=== PATIENT | female | born 1955 | race Caucasian/White ===

== ENCOUNTER → 2020-04-22 | Outpatient (CLI) | payer OTHER ==
[~2020-04-22] MED LIST: REGADENOSON 0.4 MG/5 ML PF SYG IVP SCH
== END | disposition home or self-care (01) ==
LOC: SHCH 08:09
PROVIDERS: ATTEND Internal Medicine Cardiovascular Disease
DX: I35.0 Nonrheumatic aortic (valve) stenosis (principal); J44.9 Chronic obstructive pulmonary disease, unspecified
CPT/HCPCS: 78452; 93017; 96374; A9500 ×2; J2785

== ENCOUNTER 2020-10-21 05:50 | Observation (INO) | payer MEDICARE ==
[2020-10-17 09:02] VITALS: BP 151/77
[2020-10-17 11:37] LABS: BASOPHILS % (AUTO) 0.6 % (0.0-5.0); HEMATOCRIT 43.8 % (36-48); LYMPHOCYTES % (AUTO) 30.9 % (21.0-51.0); MEAN CORPUSCULAR HEMOGLOBIN 28.4 pg (27.0-33.0); MEAN CORPUSCULAR HGB CONC 31.7 g/dL (32.0-36.0); MEAN CORPUSCULAR VOLUME 89.6 fL (79-99); MONOCYTES % (AUTO) 8.5 % (3.0-13.0); NEUTROPHILS % (AUTO) 53.6 % (40.0-77.0); PLATELET COUNT (AUTO) 170 K/uL (130-400); RED BLOOD CELL COUNT(AUTO) 4.89 MIL/uL (4.00-5.50); RED CELL DISTRIBUTION WIDTH 13.1 % (11.0-15.5); WHITE BLOOD COUNT (AUTO) 4.8 K/uL (4.8-10.8)
[2020-10-17 11:42] LABS: APPEARANCE,URINE Clear (CLEAR); BILIRUBIN,URINE Negative (NEGATIVE); COLOR,URINE Yellow (YELLOW); GLUCOSE, URINE (UA) Negative (NEGATIVE); KETONES,URINE Negative (NEGATIVE); LEUKOCYTE ESTERASE ,URINE Trace (NEGATIVE); NITRATE,URINE Negative (NEGATIVE); OCCULT BLOOD,URINE Negative (NEGATIVE); PH,URINE 5.5 (5.0-8.0); PROTEIN,URINE Negative (NEGATIVE)
[2020-10-17 11:47] LABS: POTASSIUM 5.4 mmol/L (3.5-5.1)
[2020-10-17 12:28] LABS: INR 0.96 (0.85-1.15); PROTHROMBIN TIME 10.5 SEC (9.6-11.6)
[2020-10-17 12:30] LABS: PARTIAL THROMBOPLASTIN TIME 25.5 SEC (26.3-35.5)
[2020-10-17 12:34] LABS: BACTERIA,URINE Few /HPF (None Seen); WBC,URINE 0-1 /HPF (0-1)
[2020-10-17 12:35] LABS: RBC,URINE None Seen /HPF (0-1)
[2020-10-21] VITALS (24 sets, daily range): BP systolic 113–148; BP diastolic 51–84
[~2020-10-21] VITALS: Ht 165.1 cm; Wt 72.6 kg
[~2020-10-21 05:50] MED LIST changes: +AEC81 PO; +ALBU90AE IH; +AMLO-258 PO; +ATOR40TA69 PO; +LISI40TA9 PO; +METO25TA6 PO; -REGADENOSON 0.4 MG/5 ML PF SYG IVP SCH
[2020-10-21] MEDS ORDERED: 0.9%NACL 1000ML 1,000 ML IV ONE (06:21)
[2020-10-21] MEDS ORDERED: IOHEXOL 350 MG/ML 100ML INFUS..BTL IV ONE (07:13)
[2020-10-21] MEDS ORDERED: LIDOCAINE HCL 400MG/20ML VIAL ONE (07:13)
[2020-10-21] MEDS ORDERED: HEPARIN 10,000 UNIT/10ML (1,000 UNIT/ML) VIAL ONE (07:13)
[2020-10-21] MEDS ORDERED: HEPARIN 1,000 UNIT VIAL ONE (07:30)
[2020-10-21] MEDS ORDERED: IOHEXOL-350 75 ML VIAL IV ONE (07:58)
[2020-10-21] MEDS ORDERED: 0.9%NACL 1000ML 1,000 ML IV SCH (08:00)
[2020-10-21] MEDS: 0.9%NACL 10ML VIAL IVP SCH ×2 (08:45→16:45)
[2020-10-21] MEDS ORDERED: ALBUTEROL INHALER 90MCG/INH IH PRN (18:45)
[2020-10-21] MEDS ORDERED: ATORVASTATIN 40 MG TABLET PO SCH (21:00)
[2020-10-22 03:32] VITALS: BP 129/63
[2020-10-22 07:53] VITALS: BP 136/78
[2020-10-22] MEDS ORDERED: METOPROLOL TARTRATE 25 MG TAB PO SCH (09:00)
[2020-10-22] MEDS ORDERED: ASPIRIN 81MG CHEW TAB PO SCH (09:00)
[2020-10-22] MEDS ORDERED: AMLODIPINE 5 MG TAB PO SCH (09:00)
[2020-10-22] MEDS ORDERED: LISINOPRIL 40 MG TABLET PO SCH (09:00)
[2020-10-22] MEDS: 0.9%NACL 10ML VIAL IVP SCH (09:09)
[2020-12-17] MEDS ORDERED: METO25TA6 PO (15:21)
[2020-12-17] MEDS ORDERED: PANT40TA55 PO (15:21)
[2020-12-24] MEDS ORDERED: FURO20TA6 PO (12:48)
[2020-12-24] MEDS ORDERED: AMIO200T44 PO (12:48)
[2020-12-24] MEDS ORDERED: LOSA25TA2 PO (12:48)
[2020-12-24] MEDS ORDERED: ATOR40TA69 PO (12:48)
[2020-12-24] MEDS ORDERED: METO25 PO (12:48)
== END 2020-10-22 10:14 | disposition home or self-care (01) ==
LOC: DAH 05:50 → DAHIP 05:51 → INTOOBSV 05:51 → EDSTATUS 09:00 → 2DH 18:17 → 4CH 21:09
PROVIDERS: ADMIT Internal Medicine Cardiovascular Disease; ATTEND Internal Medicine Cardiovascular Disease
DX: I25.119 Atherosclerotic heart disease of native coronary artery with unspecified angina pectoris (principal); I35.2 Nonrheumatic aortic (valve) stenosis with insufficiency; S30.1XXA Contusion of abdominal wall, initial encounter; I10 Essential (primary) hypertension; J44.1 Chronic obstructive pulmonary disease with (acute) exacerbation; Z95.2 Presence of prosthetic heart valve; X58.XXXA Exposure to other specified factors, initial encounter; Y92.89 Other specified places as the place of occurrence of the external cause; Y93.89 Activity, other specified; Y99.8 Other external cause status
CPT/HCPCS: 36415 ×2; 71045; 80048; 81001; 82948; 84132; 85025; 85610; 85730; 93005; 93460; A4215; A4216; A4221; A4222; A4223 ×3; A4335; A4554; A4606; A4663; C1894 ×2; G0378 ×25; J1644 ×2; J3490; J7030; Q9965 ×2; Q9967 ×2

== ENCOUNTER 2021-04-28 11:47 | Emergency (ER) | payer MEDICARE ==
[~2021-04-28] VITALS: Ht 165.1 cm; Wt 76.7 kg
[~2021-04-28 11:47] MED LIST changes: +AMIO200T44 PO; -AMLO-258 PO; +FURO20TA6 PO; -LISI40TA9 PO; +LOSA25TA2 PO; +METO25 PO; -METO25TA6 PO; +PANT40TA55 PO
[2021-04-28 12:21] LABS: BASOPHILS % (AUTO) 0.6 % (0.0-5.0); EOSINOPHILS % (AUTO) 4.1 % (0.0-8.0); HEMATOCRIT 41.8 % (36-48); LYMPHOCYTES % (AUTO) 19.8 % (21.0-51.0); MEAN CORPUSCULAR HEMOGLOBIN 27.8 pg (27.0-33.0); MEAN CORPUSCULAR HGB CONC 31.8 g/dL (32.0-36.0); MEAN CORPUSCULAR VOLUME 87.3 fL (79-99); MONOCYTES % (AUTO) 8.2 % (3.0-13.0); PLATELET COUNT (AUTO) 195 K/uL (130-400); RED BLOOD CELL COUNT(AUTO) 4.79 MIL/uL (4.00-5.50); WHITE BLOOD COUNT (AUTO) 6.6 K/uL (4.8-10.8)
[2021-04-28 12:47] LABS: CREATININE 1.1 mg/dL (0.5-1.5); POTASSIUM 3.9 mmol/L (3.5-5.1)
[2021-04-28 12:49] LABS: INR 0.97 (0.85-1.15); PROTHROMBIN TIME 10.6 SEC (9.6-11.6)
[2021-04-28 12:50] LABS: PARTIAL THROMBOPLASTIN TIME 26.9 SEC (26.3-35.5)
[2021-04-28 12:58] LABS: BILIRUBIN,TOTAL 0.2 mg/dL (0.2-1.0); TOTAL PROTEIN, SERUM 7.3 g/dL (6.0-8.3)
[2021-04-28 13:48] LABS: APPEARANCE,URINE Clear (CLEAR); BILIRUBIN,URINE Negative (NEGATIVE); COLOR,URINE Yellow (YELLOW); GLUCOSE, URINE (UA) Negative (NEGATIVE); KETONES,URINE Negative (NEGATIVE); LEUKOCYTE ESTERASE ,URINE Negative (NEGATIVE); NITRATE,URINE Negative (NEGATIVE); OCCULT BLOOD,URINE Negative (NEGATIVE); PROTEIN,URINE Negative (NEGATIVE); UROBILINOGEN,URINE 0.2 mg/dL (0.2-1.0)
[2021-04-28 14:20] LABS: B-TYPE NATRIURETIC PEPTIDE 204 pg/mL (0-100)
[2021-04-28] MEDS ORDERED: AMLODIPINE 5 MG TAB PO ONE (14:30)
[2021-04-28] MEDS ORDERED: LABETALOL 20MG VIAL IV ONE (14:30)
[2021-04-28] MEDS ORDERED: AMLO-258 PO (16:13)
[2021-04-28 16:21] VITALS: BP 143/82
== END 2021-04-28 16:43 | disposition home or self-care (01) ==
LOC: EDH 11:47
DX: I10 Essential (primary) hypertension (principal); E78.5 Hyperlipidemia, unspecified; I25.10 Atherosclerotic heart disease of native coronary artery without angina pectoris; Z79.82 Long term (current) use of aspirin; Z79.899 Other long term (current) drug therapy; Z95.1 Presence of aortocoronary bypass graft
CPT/HCPCS: 36415; 71045; 80053; 81003; 82550; 83880; 84484; 85025; 85610; 85730; 93005; 96374; 99285; J3490

== ENCOUNTER → 2021-07-09 | Outpatient (CLI) | payer MEDICARE ==
[~2021-07-09] MED LIST changes: +AMLO-258 PO
== END | disposition home or self-care (01) ==
LOC: SLP 20:15
PROVIDERS: ATTEND Internal Medicine Cardiovascular Disease
DX: G47.33 Obstructive sleep apnea (adult) (pediatric) (principal)
CPT/HCPCS: 95811

== ENCOUNTER → 2022-11-29 | Outpatient (CLI) | payer MEDICARE ==
[2022-11-29 12:27] LABS: ALBUMIN 3.8 g/dL (3.5-5.0); CREATININE 0.9 mg/dL (0.5-1.5); TOTAL PROTEIN, SERUM 7.3 g/dL (6.0-8.3)
== END | disposition home or self-care (01) ==
LOC: LAB 09:11
PROVIDERS: ATTEND Internal Medicine Cardiovascular Disease
DX: I48.0 Paroxysmal atrial fibrillation (principal); I25.10 Atherosclerotic heart disease of native coronary artery without angina pectoris; I50.33 Acute on chronic diastolic (congestive) heart failure
CPT/HCPCS: 36415; 80053; 80061

== ENCOUNTER → 2023-02-28 | Outpatient (CLI) | payer MEDICARE ==
[~2023-02-28] MED LIST changes: +LOSA-417 PO; -LOSA25TA2 PO
== END | disposition home or self-care (01) ==
LOC: SHCH 12:50
PROVIDERS: ATTEND Internal Medicine Cardiovascular Disease
DX: I35.2 Nonrheumatic aortic (valve) stenosis with insufficiency (principal); I51.7 Cardiomegaly; Z95.3 Presence of xenogenic heart valve
CPT/HCPCS: 93306

== ENCOUNTER → 2023-11-30 | Outpatient (CLI) | payer MEDICARE ==
[2023-11-30 16:48] LABS: ALBUMIN 4.2 g/dL (3.5-5.0); BILIRUBIN,TOTAL 0.5 mg/dL (0.2-1.0); CREATININE 1.2 mg/dL (0.5-1.0); POTASSIUM 4.6 mmol/L (3.5-5.1); TOTAL PROTEIN, SERUM 7.8 g/dL (6.0-8.3)
== END | disposition home or self-care (01) ==
LOC: LAB 11:50
PROVIDERS: ATTEND Physician Assistant
DX: I35.0 Nonrheumatic aortic (valve) stenosis (principal); E78.5 Hyperlipidemia, unspecified
CPT/HCPCS: 36415; 80053; 80061

== ENCOUNTER → 2024-10-11 | Outpatient (CLI) | payer MEDICARE ==
--- NOTE | 2024-10-12 08:51 | HMCIMG ---
Exam Type: MAMMO SCREENING BILATERAL Clinical Information: REESTABLISH BASELINE Comparison: None Technique: Mammogram with CAD was performed with CC and MLO projections. CAD shows no worrisome regions. FINDINGS: The breasts are heterogeneously dense, which may obscure small masses. No dominant mass or suspicious microcalcification identified. There is no nipple retraction or skin thickening. Benign-appearing calcifications are seen. CAD shows no worrisome regions. IMPRESSION: 1. No mammographic signs of malignancy. 2. Routine follow-up recommended. CATEGORY 2: BENIGN FINDINGS Note: A negative x-ray should not delay biopsy if a dominant or clinically suspicious mass is present, since 8-10% of cancers are not identified by mammography. Dense breasts may obscure an underlying neoplasm.
== END | disposition home or self-care (01) ==
LOC: RAH 14:47
PROVIDERS: ATTEND Family Medicine
DX: Z12.31 Encounter for screening mammogram for malignant neoplasm of breast (principal); R92.333 Mammographic heterogeneous density, bilateral breasts
CPT/HCPCS: 77067